=== PATIENT | male | born 1980 | race Caucasian/White ===

== ENCOUNTER 2022-01-09 13:28 | Observation (INO) | payer BC, OTHER ==
[~2022-01-09 13:28] MED LIST: ISOVUE-370 76%-LOCM 1 ML ONE
[2022-01-09] MEDS ORDERED: Ketorolac Tromethamine 30 MG/ML VIAL ONE (14:08)
[2022-01-09 14:32] LABS: #Basophils 0.1 thou/uL (0.0-0.2); #Eosinphils 0.3 thou/uL (0.0-0.7); #Lymphocytes 1.7 thou/uL (1.20-3.40); #Monocytes 0.6 thou/uL (0.11-0.59); #Neutrophils 3.9 thou/uL (1.40-6.50); %Eosinophils 5.1 % (0.0-10.0); %Lymphocytes 25.9 % (21.0-51.0); %Monocytes 9.1 % (0.0-10.0); %Neutrophils 58.9 % (42.0-75.0); Hemoglobin 13.3 g/dL (14.0-18.0); Mean Corpuscular HGB CONC 35.3 g/dL (32.0-36.0); Mean Corpuscular Hemoglobin 35.1 pg (27.0-31.0); Mean Corpuscular Volume 99.5 fL (78.0-98.0); Mean Platelet Volume 6.8 fL (7.4-10.4); Platelet Count 184 thou/uL (130-400); RBC Distribution Width 12.9 % (11.5-14.5); White Blood Cell (WBC) Count 6.7 thou/uL (4.8-10.8)
[2022-01-09 14:59] LABS: ALT (SGPT) 25 U/L (8-55); AST (SGOT) 20 U/L (5-34); Albumin 3.4 g/dL (3.5-5.0); Alkaline Phosphatase 72 U/L (40-110); Anion Gap 9 mmol/L (10-20); BUN (Urea Nitrogen) 8 mg/dL (8.9-20.6); Bilirubin, Total 0.4 mg/dL (0.2-1.2); Calc. Creatinine Clearance 0 mL/min (70-130); Carbon Dioxide 24 mmol/L (22-29); Chloride 110 mmol/L (98-107); Estimated GFR 114; Glucose 92 mg/dL (70-105); Lipase 285 U/L (8-78); Potassium 4.1 mmol/L (3.5-5.1); Protein, Total 5.4 g/dL (6.0-8.3); Sodium 139 mmol/L (136-145)
[2022-01-09] MEDS ORDERED: Morphine 4 MG/ML VIAL ONE ×2 (15:19→16:21)
[2022-01-09] MEDS ORDERED: Ondansetron PF 4 MG/2 ML Vial ONE (15:28)
[2022-01-09 15:39] LABS: Bilirubin Negative (Negative); Blood, Urine Negative (Negative); Clarity Clear (Clear); Glucose, Urine (Dipstick) Normal (Negative); Ketone, Urine Negative (Negative); Leukocyte Negative Leu/uL (Negative); Nitrite Negative (Negative); Protein, Urine (Dipstick) Negative (Neg-Trace); Specific Gravity, Urine 1.008 (1.002-1.036); Urobilinogen Normal mg/dL (Less than 2)
[2022-01-09] MEDS ORDERED: Acetaminophen 325 MG TAB PO PRN (17:24)
[2022-01-09] MEDS ORDERED: Acetaminophen 650 MG Suppository PR PRN (17:24)
[2022-01-09] MEDS ORDERED: Ondansetron PF 4 MG/2 ML Vial IVP PRN (17:28)
[2022-01-09] MEDS ORDERED: hydrALAZINE 20 MG/ML VIAL SLOW IVP PRN (17:37)
[2022-01-09] MEDS ORDERED: Piperacillin/Tazobactam 3.375 GM in Sodium Chloride 0.9% 100 ML IVPB SCH (18:15)
[2022-01-09] MEDS: Ketorolac Tromethamine 30 MG/ML VIAL IVP SCH (18:19)
[2022-01-09] MEDS: Lactated Ringer's 1,000 ML IV SCH (18:19)
[2022-01-09 18:22] LABS: Cardiac Risk 5.9 (Less than 4.5)
[2022-01-09 18:47] LABS: SARS-CoV-2 NAA Rapid Test DETECTED (NotDetected)
[2022-01-09] MEDS: Morphine 2 MG/ML VIAL SLOW IVP PRN (19:08)
[2022-01-09] MEDS ORDERED: HYDROmorphone 2 MG/ML VIAL SLOW IVP SCH (19:30)
[2022-01-09] MEDS ORDERED: Pantoprazole 40 MG VIAL IVP SCH (20:30)
[2022-01-09] MEDS ORDERED: Cholecalciferol (Vitamin D3) 400 UNITS TAB PO SCH (20:30)
[2022-01-09] MEDS ORDERED: Ascorbic Acid 500 mg Chewable Tablet PO SCH (20:30)
[2022-01-09] MEDS ORDERED: Zinc Sulfate 220 MG CAP PO SCH (20:30)
[2022-01-09] MEDS: Piperacillin/Tazobactam 3.375 GM in Sodium Chloride 0.9% 100 ML IVPB SCH (21:20)
[2022-01-10] MEDS: Ketorolac Tromethamine 30 MG/ML VIAL IVP SCH ×2 (01:14→06:28)
[2022-01-10] MEDS: Lactated Ringer's 1,000 ML IV SCH (01:18)
[2022-01-10 04:12] VITALS: BMI 22.4
[2022-01-10] MEDS: Morphine 2 MG/ML VIAL SLOW IVP PRN (04:36)
[2022-01-10] MEDS: Piperacillin/Tazobactam 3.375 GM in Sodium Chloride 0.9% 100 ML IVPB SCH (06:28)
[2022-01-10] MEDS ORDERED: Pantoprazole 40 MG VIAL IVP SCH (09:00)
[2022-01-10] MEDS ORDERED: Ascorbic Acid 500 mg Chewable Tablet PO SCH (09:00)
[2022-01-10] MEDS ORDERED: Cholecalciferol (Vitamin D3) 400 UNITS TAB PO SCH (09:00)
[2022-01-10] MEDS ORDERED: Enoxaparin Sodium 40 MG/0.4 ML SYRINGE SC SCH (09:00)
[2022-01-10] MEDS ORDERED: Zinc Sulfate 220 MG CAP PO SCH (09:00)
[2022-01-10 11:44] VITALS: BP 113/72; TEMP 97.7
== END 2022-01-10 13:23 | disposition home or self-care (01) ==
LOC: ERS 13:28 → T4-A 17:20 → INTOOBSV 17:20
PROVIDERS: ADMIT Internal Medicine; ATTEND Internal Medicine
DX: K85.90 Acute pancreatitis without necrosis or infection, unspecified (principal); K58.0 Irritable bowel syndrome with diarrhea; U07.1 COVID-19; K43.9 Ventral hernia without obstruction or gangrene; Z85.46 Personal history of malignant neoplasm of prostate; Z86.39 Personal history of other endocrine, nutritional and metabolic disease
CPT/HCPCS: 36415; 71045; 74177; 76705; 80053; 80061; 81003; 83605; 83690; 84484; 85025; 85379; 93005; 96374; 96375; 96376; C9113; J1170; J1885; J2270; J2405; J2543; J3490; J7120; Q9966; U0002